=== PATIENT | female | born 1960 ===

== ENCOUNTER 2024-06-10 08:00 | Inpatient (IN) | payer OTHER ==
[~2024-06-10] VITALS: Ht 154.9 cm; Wt 81.2 kg
[2024-06-10 07:52] VITALS: BP 147/85
[2024-06-10 07:57] VITALS: BP 133/85
[~2024-06-10 08:00] MED LIST: AVAPRO150 MG PO; ROSUVASTATIN CAL5 MG PO; SYNTHROID88 MCG PO
[2024-06-10 09:34] LABS: RH POSITIVE
[2024-06-14] MEDS ORDERED: CEFAZOLIN SODIUM 1,000 MG VIAL ONE ×2 (13:09→18:06)
[2024-06-14] MEDS ORDERED: TRANEXAMIC ACID 100MG/1ML (1000MG) AMPUL IV ONE (13:10)
[2024-06-14] MEDS ORDERED: KETOROLAC TROMETHAMINE 30 MG VIAL ONE (13:40)
[2024-06-14] MEDS ORDERED: levoFLOXacin IN DEXTROSE 5 % 5 MG/ML PIGGYBAG IV ONE (13:55)
[2024-06-14] MEDS ORDERED: MORPHINE SULFATE 4 MG/ML CARTRIDGE IV ONE (14:45)
[2024-06-14] MEDS ORDERED: LIDOCAINE HCL 1% 20 ML VIAL IJ ONE (14:45)
[2024-06-14] MEDS ORDERED: BUPIVACAINE HCL/PF 0.25% 30ML VIAL InF ONE (14:45)
[2024-06-14] MEDS ORDERED: VANCOMYCIN HCL 1,000 MG VIAL ONE (15:21)
[2024-06-14] MEDS ORDERED: MORPHINE SULFATE 2 MG/ML CARTRIDGE IV ONE (16:00)
[2024-06-14] MEDS ORDERED: ONDANSETRON HCL 2 MG/ML VIAL IV PRN (16:00)
[2024-06-14] MEDS ORDERED: SODIUM CHLORIDE 0.45 % 1,000 ML IV SCH (16:00)
[2024-06-14] MEDS ORDERED: MORPHINE SULFATE 4 MG/ML VIAL IV PRN (16:00)
[2024-06-14] MEDS ORDERED: CEFAZOLIN SODIUM 1,000 MG VIAL IV SCH (18:00)
[2024-06-14] MEDS ORDERED: MORPHINE SULFATE 4 MG/ML VIAL IV ONE ×2 (18:45→20:00)
[2024-06-14 19:47] LABS: HEMATOCRIT 37.7 % (36.0-45.00); HEMOGLOBIN 12.6 g/dL (12.0-15.00); RED BLOOD COUNT 4.58 M/uL (4.00-6.00)
[2024-06-14 21:57] VITALS: BP 147/85; O2SAT 95
[2024-06-15 00:37] VITALS: BP 158/82; O2SAT 96
[2024-06-15] MEDS ORDERED: LEVOTHYROXINE SODIUM 88 MCG TABLET PO SCH (06:00)
[2024-06-15 06:47] LABS: URINE APPEARANCE Clear; URINE BILIRRUBIN Negative (NEGATIVE); URINE BLOOD Negative; URINE COLOR Dark Yellow; URINE GLUCOSE Negative (NEGATIVE); URINE KETONE Trace (NEGATIVE); URINE LEUKOCYTE Negative; URINE NITRATE Negative; URINE PROTEIN Negative (NEGATIVE); URINE UROBILINOGEN 0.2 E.U./dl
[2024-06-15 06:51] LABS: HEMATOCRIT 35.8 % (36.0-45.00); HEMOGLOBIN 11.8 g/dL (12.0-15.00); MEAN CELL VOLUME 83.2 fL (80.00-100.00); MEAN CORPUSCULAR HEMOGLOBIN 27.3 pg (27.00-32.0); MEAN CORPUSCULAR HGB CONC 32.8 g/dl (32.0-36.0); PLATELET COUNT 207 K/uL (150-450); RED BLOOD COUNT 4.31 M/uL (4.00-6.00); RED CELL DISTRIBUTION WIDTH 15.2 % (11.5-14.5)
[2024-06-15 06:52] LABS: URINE BACTERIA 837.1 uL (0.0-1933); URINE CAST 8.39 uL (0.0-1.40); URINE EPITHELIAL CELLS 61.9 uL (0.0-38.8); URINE WBC 83.7 uL (0.0-23.2)
[2024-06-15 07:19] LABS: URINE MUCUS MODERATE
[2024-06-15 08:00] VITALS: BP 151/83; O2SAT 97
[2024-06-15] MEDS ORDERED: ACETAMINOPHEN WITH CODEINE 1 UDTAB TABLET PO PRN (08:15)
[2024-06-15] MEDS ORDERED: BACITRACIN 28.35 GM OINT.TUBE TOP SCH (09:00)
[2024-06-15] MEDS ORDERED: IRBESARTAN 150 MG TABLET PO SCH (09:00)
[2024-06-15] MEDS ORDERED: IRON FUM,PS/FOLIC/BCOMP,C NO.9 1 CAP CAPSULE PO SCH (09:00)
[2024-06-15] MEDS ORDERED: levoFLOXacin 750 MG TABLET PO SCH (09:00)
[2024-06-15] MEDS ORDERED: RIVAROXABAN 10 MG TAB PO SCH (09:00)
[2024-06-15] MEDS ORDERED: SENNA/DOCUSATE SODIUM 1 TAB TABLET PO SCH (09:00)
[2024-06-15 12:59] LABS: ALBUMIN 3.3 gm/dL (3.4-5.0); BILIRUBIN TOTAL 0.6 mg/dL (0.3-1.2); CALCIUM 9.3 mg/dL (8.5-10.1); CREATININE SERUM 0.69 mg/dL (0.55-1.02); GFR 85.65; GLOBULINA 3.2 G/DL (2.4-3.5); POTASSIUM 4.15 mEq/L (3.5-5.1); TOTAL PROTEIN 6.5 gm/dL (6.4-8.2)
[2024-06-15] MEDS ORDERED: MORPHINE SULFATE 4 MG/ML CARTRIDGE IV ONE (17:45)
[2024-06-15 22:38] VITALS: BP 150/79; O2SAT 97
[2024-06-16 00:38] VITALS: BP 125/77; O2SAT 96
[2024-06-16] MEDS ORDERED: ACETAMINOPHEN-1 EAC2 PO (06:24)
[2024-06-16] MEDS ORDERED: XARELTO10 MG PO (06:24)
[2024-06-16] MEDS ORDERED: INTEGRA PLUS C1 EACH PO (06:24)
[2024-06-16] MEDS ORDERED: BACTRIM DS TAB1 EACH PO (06:25)
[2024-06-16 07:04] LABS: HEMATOCRIT 36.4 % (36.0-45.00); HEMOGLOBIN 12.1 g/dL (12.0-15.00); MEAN CELL VOLUME 83.1 fL (80.00-100.00); MEAN CORPUSCULAR HEMOGLOBIN 27.6 pg (27.00-32.0); MEAN CORPUSCULAR HGB CONC 33.2 g/dl (32.0-36.0); PLATELET COUNT 240 K/uL (150-450); RED BLOOD COUNT 4.39 M/uL (4.00-6.00); RED CELL DISTRIBUTION WIDTH 15.2 % (11.5-14.5)
[2024-06-16 08:00] VITALS: BP 160/80; O2SAT 98
== END 2024-06-16 15:53 | DRG 470 ==
LOC: SURG 06-14 05:20 → O/R 06-14 05:20 → SURH 06-14 08:00 → SURG 06-14 15:04
PROVIDERS: ADMIT Orthopaedic Surgery Sports Medicine; ATTEND Orthopaedic Surgery Sports Medicine
PROC: 0SRC0J9 Replacement of Right Knee Joint with Synthetic Substitute, Cemented, Open Approach (ICD-10-PCS; principal; 2024-06-14 14:00)
DX: M17.11 Unilateral primary osteoarthritis, right knee (principal)